=== PATIENT | male | born 2005 | race Caucasian/White ===

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

== ENCOUNTER 2025-01-15 17:14 | Emergency (ER) | payer SELFPAY ==
[~2025-01-15] VITALS: Ht 190.5 cm; Wt 95.9 kg
[~2025-01-15 17:14] MED LIST: AMOXICILLIN 50500 MG PO; KETOROLAC10 MG PO
[2025-01-15 17:56] LABS: BASO # 0.03 K/mm3 (0.02-0.10); EOS # 0.06 K/mm3 (0.04-0.40); EOS % 0.8 % (0.0-4.0); HEMATOCRIT 48.1 % (42.0-52.0); HEMOGLOBIN 16.7 g/dL (13.5-18.0); LYMPH# 1.91 K/mm3 (1.50-4.00); MEAN CELL VOLUME 88 fl (78-100); MEAN CORPUSCULAR HEMOGLOBIN 31 pg (27-31); MEAN CORPUSCULAR HGB CONC 35 g/dL (33-37); MEAN PLATELET VOLUME 9.3 fl (7.4-10.4); MONO # 0.49 K/mm3 (0.20-0.80); NEU # 5.08 K/mm3 (1.40-6.50); PLATELET COUNT 251 K/mm3 (130-400); RED BLOOD COUNT 5.45 M/mm3 (4.20-5.60); RED CELL DISTRIBUTION WIDTH 11.6 % (11.5-14.5); WHITE BLOOD COUNT 7.6 K/mm3 (4.8-10.8)
[2025-01-15 18:03] LABS: SODIUM 140 mmol/L (136-145)
[2025-01-15 18:04] LABS: CALCIUM 10.2 mg/dL (8.3-10.5)
[2025-01-15 18:05] LABS: GLUCOSE 97 mg/dL (75-110); TOTAL PROTEIN 8.1 g/dL (6.4-8.3)
[2025-01-15 18:06] LABS: CARBON DIOXIDE 24 mmol/L (22-29)
[2025-01-15 18:07] LABS: TOTAL BILIRUBIN 0.7 mg/dL (0.2-1.2)
[2025-01-15 18:08] LABS: ALCOHOL IN-HOUSE < 10 mg/dL (<10)
[2025-01-15 18:10] LABS: AST-SGOT 18 U/L (5-34)
[2025-01-15 18:12] LABS: ALT/SGPT 19 U/L (0-55)
[2025-01-15 18:19] LABS: PH-URINE 6.5 (5.0 - 8.0); URINE APPEARANCE CLEAR (CLEAR); URINE BILIRUBIN NEGATIVE (NEGATIVE); URINE BLOOD NEGATIVE (NEGATIVE); URINE COLOR YELLOW (YELLOW); URINE GLUCOSE NEGATIVE (NEGATIVE); URINE KETONE NEGATIVE (NEGATIVE); URINE LEUKOCYTE ESTERASE NEGATIVE (NEGATIVE); URINE NITRATE NEGATIVE (NEGATIVE); URINE PROTEIN(semi-quant) NEGATIVE (NEGATIVE)
[2025-01-15 18:20] LABS: URINE WBC 0-1 /hpf (0-3)
[2025-01-15 18:45] VITALS: BP 133/68
[2025-01-15 19:12] VITALS: BP 140/68
[2025-01-15] MEDS ORDERED: Cetirizine 10 MG TAB PO ONE (20:15)
[2025-01-15 22:47] VITALS: BP 132/78
== END 2025-01-15 22:46 | disposition home or self-care (01) ==
LOC: ED 17:14
PROVIDERS: Family Medicine
DX: T39.1X2A Poisoning by 4-Aminophenol derivatives, intentional self-harm, initial encounter (principal); F17.290 Nicotine dependence, other tobacco product, uncomplicated